=== PATIENT | male | born 1970 | race Caucasian/White ===

== ENCOUNTER 2016-12-02 17:53 | Emergency (ER) | payer OTHER ==
[~2016-12-02] VITALS: Ht 182.9 cm; Wt 114.6 kg
[~2016-12-02 17:53] MED LIST: ATV1 PO; CMD5 PO; MOMLX PO; MRPSR15 PO; NRN400 PO; PRT40 PO; RXC5 PO; SPRIN PO; TPRSR25 PO; VLM5 PO
[2016-12-02 17:55] VITALS: TEMP 36.5; Ht 182.9 cm; Wt 114.6 kg
[2016-12-02 20:07] LABS: BASO % 0.3 %; BASO ABS # 0.02 K/uL (0-0.2); COMPLETE YES; EOS % 1.1 %; HEMATOCRIT 37.6 % (42-52); IG% 0.2 %; LYMPH % 33.7 %; LYMPH ABS # 2.11 K/uL (1.2-3.4); MEAN CELL VOLUME 81.2 fL (80-100); MEAN CORPUSCULAR HEMOGLOBIN 29.2 pg (25-34); MEAN CORPUSCULAR HGB CONC 35.9 g/dl (32-36); MEAN PLATELET VOLUME 10.1 fL (7.4-10.4); NEUT % 56.7 %; PLATELET COUNT 257 K/uL (130-400); RED BLOOD COUNT 4.63 M/uL (4.7-6.1); WHITE BLOOD COUNT 6.26 K/uL (4.8-10.8)
[2016-12-02] MEDS ORDERED: OPTIRAY 320 IV PRN (20:15)
[2016-12-02 20:17] LABS: URINE APPEARANCE CLEAR (CLEAR); URINE BILIRUBIN NEG (NEG); URINE COLOR YELLOW; URINE NITRITE NEG (NEG); URINE PH 6.5 (4.5-7.5); URINE SPECIFIC GRAVITY 1.029 (1.000-1.030); UROBILINOGEN NEG (NEG)
[2016-12-02 20:19] LABS: MANUAL MICROSCOPIC REQUIRED? NO; REVIEW REQ? NO
[2016-12-02 20:21] LABS: PARTIAL THROMBOPLASTIN RATIO 0.8; PROTHROMBIN TIME (PATIENT) 10.4 SECONDS (9.0-12.0)
[2016-12-02 20:21] LABS: ARTERIAL BLD GAS O2 SATURATION 97.2 % (90-95); ARTERIAL BLOOD GAS BASE EXCESS 3.5 mEq/L (-9-1.8); ARTERIAL BLOOD GAS HCO3 28 mmol/L (19-24); ARTERIAL BLOOD GAS PO2 89 mm/Hg (80-95); ARTERIAL BLOOD GAS pH 7.46 (7.35-7.45)
[2016-12-02] MEDS ORDERED: RANI300T2 PO (20:25)
[2016-12-02] MEDS ORDERED: OMEP40CA41 PO (20:25)
--- NOTE | 2016-12-02 20:28 | DIAGNOSTIC IMAGING REPORT ---
CHEST ONE VIEW PORTABLE HISTORY: EVALUATE WEAKNESS COMPARISON: Chest 04/26/2016. FINDINGS: No pneumothorax. No pleural effusions. Poststernotomy changes. The heart is normal in size. Low lung volumes. The lungs are clear. No evidence for pulmonary edema. IMPRESSION: No significant change compared to the prior study. No acute process. Electronically signed by: Petey Lowe M.D. 12/02/2016 8:27 PM Dictated Date/Time: 12/02/2016 8:25 PM
[2016-12-02] MEDS ORDERED: MOME200A INH (20:38)
[2016-12-02] MEDS ORDERED: ASMIN/60 INH (20:38)
[2016-12-02] MEDS ORDERED: ALBU18002 INH (20:38)
[2016-12-02 20:40] LABS: ALT/SGPT 43 U/L (12-78); BLOOD UREA NITROGEN 16 mg/dl (7-18); BUN/CREATININE RATIO 18.4 (10-20); CALCIUM 9.1 mg/dl (8.5-10.1); CARBON DIOXIDE 28 mmol/L (21-32); CHLORIDE 102 mmol/L (98-107); CREATININE 0.88 mg/dl (0.60-1.40); GLUCOSE 119 mg/dl (70-99); MAGNESIUM 2.1 mg/dl (1.8-2.4); POTASSIUM 3.4 mmol/L (3.5-5.1); SODIUM 140 mmol/L (136-145)
[2016-12-02 20:47] LABS: ALLEN TEST POS (POS); O2 ADMINISTRATION ROOM AIR
[2016-12-02 20:53] LABS: ALKALINE PHOSPHATASE 82 U/L (45-117); AST/SGOT 13 U/L (15-37)
[2016-12-02] MEDS ORDERED: MONT1TAB3 PO (20:58)
[2016-12-02] MEDS ORDERED: NRN600 PO (20:58)
[2016-12-02] MEDS ORDERED: PRED-301 PO (20:58)
[2016-12-02] MEDS ORDERED: CETI10TA84 PO (20:58)
[2016-12-02] MEDS ORDERED: HYDROmorphone INJ 0.5 MG/0.5 ML SYR IV STA (21:02)
--- NOTE | 2016-12-02 21:22 | DIAGNOSTIC IMAGING REPORT ---
BILATERAL LOWER EXTREMITY VENOUS DOPPLER CLINICAL HISTORY: Respiratory difficulty. COMPARISON STUDY: Left lower extremity venous Doppler May 04, 2016. TECHNIQUE: Sonography of the deep venous system of the bilateral lower extremities was performed. Compression and augmentation were evaluated. FINDINGS: The bilateral common femoral, superficial femoral and popliteal veins were compressible. Augmentation was normal. Flow was shown within the deep calf vessels. IMPRESSION: No evidence of deep venous thrombus within the bilateral lower extremities. Electronically signed by: Alfred Cain M.D. 12/02/2016 9:21 PM Dictated Date/Time: 12/02/2016 9:19 PM
--- NOTE | 2016-12-02 21:36 | DIAGNOSTIC IMAGING REPORT ---
CT ANGIOGRAPHY OF THE CHEST, PULMONARY EMBOLUS PROTOCOL CLINICAL HISTORY: Chest pain. Respiratory difficulty. COMPARISON STUDY: Chest CT May 04, 2016. TECHNIQUE: Following IV administration of 112 mL of Optiray-320, helical axial images of the chest were obtained utilizing the pulmonary embolus protocol. Maximal intensity projections and sagittal and coronal reformats were viewed on an independent 3D workstation. IV contrast was administered without complication. CT DOSE: 598.10 mGy.cm FINDINGS: No pulmonary emboli are identified although opacification of the pulmonary arteries within the upper lobes is suboptimal. The pulmonary emboli shown on CT of May 04, 2016 have resolved. There is no evidence for thoracic aortic dissection. The size of the heart is normal. There are findings consistent with median sternotomy. Central airways are patent. No consolidation is identified. Linear right lung opacities favor scarring. There is no pneumothorax or pleural effusion. Bony thorax is unremarkable as is the upper abdomen. IMPRESSION: 1. No pulmonary emboli identified although the segmental and subsegmental pulmonary arteries within the upper lobes are suboptimally assessed on this exam. 2. No acute intrathoracic findings. Electronically signed by: Alfred Cain M.D. 12/02/2016 9:35 PM Dictated Date/Time: 12/02/2016 9:28 PM
[2016-12-02 23:14] VITALS: O2SAT 99
[2016-12-02] MEDS ORDERED: POTASSIUM CHLORIDE 10 MEQ TABCR PO SCH (23:16)
[2016-12-03] MEDS ORDERED: LACTATED RINGER'S 1000ML 1,000 ML IV SCH (00:12)
[2016-12-03] MEDS ORDERED: TRAMADOL HCL 50 MG HOME PACK PO ONE (00:15)
[2016-12-03 01:34] VITALS: BP 157/98; PULSE 72; O2SAT 98
--- NOTE | 2016-12-03 01:35 | EMERGENCY ROOM VISIT NOTE ---
History Report prepared by Shayne: Juanjose Green Under the Supervision of: Dr. Fred Camara M.D. First contact with patient: 19:22 Chief Complaint: RESPIRATORY PROBLEMS Stated Complaint: BREATHING MUSCLE PROBLEMS History of Present Illness The patient is a 46 year old male who presents to the Emergency Room with complaints of constant worsening shortness of breath. 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 Per the , the patient additionally has been agitated and not acting like himself recently. 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 The states that he is acting similarly to how he was acting then. The patient states that he was on Coumadin, however he has recently stopped taking it due to his doctor's orders on October 21. The patient additionally states that he had spinal surgery, so he has chronic back pain. He additionally states that he has neck pain, and he has calf pain, however he states that this could be chronic. Pt denies LOC, headache, fevers, chills, diaphoresis, visual changes, chest pain, nausea, vomiting, abdominal pain, back pain, melena, hematochezia, urinary symptoms, numbness, weakness, lymphadenopathy, rash, or other complaints. Source of History: patient Onset: a while ago Position: other (global) Quality: other (shortness of breath) Timing: constant, worsening Associated Symptoms: + back pain, + neck pain Review of Systems See HPI for pertinent positives and negatives. A total of ten systems were reviewed and were otherwise negative. Past Medical & Surgical Medical Problems: (1) Arthritis of lower back (2) Benign hypertension (3) Lumbar disc herniation with radiculopathy (4) Pulmonary embolism Family History Diabetes mellitus Heart disease Hypertension Social History Smoking Status: Former Smoker Alcohol Use: none Drug Use: none Marital Status: Housing Status: lives with family Occupation Status: unemployed Current/Historical Medications Scheduled Cetirizine (Zyrtec), 10 MG PO AFTERNOON Gabapentin (Gabapentin), 600 MG PO TID Metoprolol Succinate (Metoprolol Succinate ER), 25 MG PO QAM Mometasone Furoate (Asmanex Twisthaler 60 Met), 3 PUFFS INH HS Mometasone Furoate-Formoterol (Dulera 200/5 Mcg), 2 PUFFS INH BID Montelukast Sodium (Singulair), 10 MG PO HS Omeprazole (Prilosec), 40 MG PO QAM Prednisone (Prednisone), 0 PO UD Ranitidine (Zantac), 300 MG PO HS Tiotropium Foristell (Spiriva Handihaler), 1 PUFF PO DAILY Scheduled PRN Albuterol Sulfate (Proair Respiclick), 2 PUFFS INH Q4 PRN for SOB/Wheezing Allergies Coded Allergies: Cat Dander (Verified Allergy, Intermediate, SNEEZING, ITCHY EYES, RUNNY NOSE, 12/02/16) Lorazepam (Verified Adverse Reaction, Severe, DELIRIUM, 12/02/16) Pt states he" lost his mind", very confused, hallucinated, thought was in [place]. Physical Exam Vital Signs Date Time Temp Pulse Resp B/P Pulse Ox O2 Delivery O2 Flow Rate FiO2 12/02/16 23:14 99 Nasal Cannula 2.0 12/02/16 23:13 70 18 152/115 86 Room Air 12/02/16 22:16 73 18 139/102 95 Room Air 12/02/16 20:31 76 12/02/16 19:50 97 Room Air 12/02/16 17:58 98 Room Air 12/02/16 17:55 36.5 81 20 170/101 98 Room Air Physical Exam GENERAL: Awake, alert, tired-appearing, in no distress HENT: Normocephalic, atraumatic. Oropharynx unremarkable. EYES: Normal conjunctiva. Sclera non-icteric. NECK: Supple. No nuchal rigidity. FROM. No JVD. RESPIRATORY: Clear to auscultation. CARDIAC: Regular rate, normal rhythm. Extremities warm and well perfused. Pulses equal. ABDOMEN: Soft, non-distended. No tenderness to palpation. No rebound or guarding. No masses. RECTAL: Deferred. MUSCULOSKELETAL: Chest examination reveals no tenderness. The back is symmetrical on inspection without obvious abnormality. There is no CVA tenderness to palpation. No joint edema. LOWER EXTREMITIES: Mild left calf tenderness. Subjective numbness in the left foot. Calves are equal size bilaterally. No edema. No discoloration. NEURO: Normal sensorium. No sensory or motor deficits noted. SKIN: No rash or jaundice noted. Medical Decision & Procedures ER Provider Diagnostic Interpretation: X ray results as stated below per my interpretation and radiologist interpretation. Other radiology results as stated below per my review and radiologist interpretation CHEST ONE VIEW PORTABLE HISTORY: EVALUATE WEAKNESS COMPARISON: Chest 04/26/2016. FINDINGS: No pneumothorax. No pleural effusions. Poststernotomy changes. The heart is normal in size. Low lung volumes. The lungs are clear. No evidence for pulmonary edema. IMPRESSION: No significant change compared to the prior study. No acute process. Electronically signed by: Petey Lowe M.D. 12/02/2016 8:27 PM Dictated Date/Time: 12/02/2016 8:25 PM BILATERAL LOWER EXTREMITY VENOUS DOPPLER CLINICAL HISTORY: Respiratory difficulty. COMPARISON STUDY: Left lower extremity venous Doppler May 04, 2016. TECHNIQUE: Sonography of the deep venous system of the bilateral lower extremities was performed. Compression and augmentation were evaluated. FINDINGS: The bilateral common femoral, superficial femoral and popliteal veins were compressible. Augmentation was normal. Flow was shown within the deep calf vessels. IMPRESSION: No evidence of deep venous thrombus within the bilateral lower extremities. Electronically signed by: Alfred Cain M.D. 12/02/2016 9:21 PM Dictated Date/Time: 12/02/2016 9:[address] ANGIOGRAPHY OF THE CHEST, PULMONARY EMBOLUS PROTOCOL CLINICAL HISTORY: Chest pain. Respiratory difficulty. COMPARISON STUDY: Chest CT May 04, 2016. TECHNIQUE: Following IV administration of 112 mL of Optiray-320, helical axial images of the chest were obtained utilizing the pulmonary embolus protocol. Maximal intensity projections and sagittal and coronal reformats were viewed on an independent 3D workstation. IV contrast was administered without complication. CT DOSE: 598.10 mGy.cm FINDINGS: No pulmonary emboli are identified although opacification of the pulmonary arteries within the upper lobes is suboptimal. The pulmonary emboli shown on CT of May 04, 2016 have resolved. There is no evidence for thoracic aortic dissection. The size of the heart is normal. There are findings consistent with median sternotomy. Central airways are patent. No consolidation is identified. Linear right lung opacities favor scarring. There is no pneumothorax or pleural effusion. Bony thorax is unremarkable as is the upper abdomen. IMPRESSION: 1. No pulmonary emboli identified although the segmental and subsegmental pulmonary arteries within the upper lobes are suboptimally assessed on this exam. 2. No acute intrathoracic findings. Electronically signed by: Alfred Cain M.D. 12/02/2016 9:35 PM Dictated Date/Time: 12/02/2016 9:28 PM Laboratory Results 12/02/16 19:50 Red Blood Count 4.63, Mean Corpuscular Volume 81.2, Mean Corpuscular Hemoglobin 29.2, Mean Corpuscular Hemoglobin Concent 35.9, Mean Platelet Volume 10.1, Neutrophils (%) (Auto) 56.7, Lymphocytes (%) (Auto) 33.7, Monocytes (%) (Auto) 8.0, Eosinophils (%) (Auto) 1.1, Basophils (%) (Auto) 0.3, Neutrophils # (Auto) 3.55, Lymphocytes # (Auto) 2.11, Monocytes # (Auto) 0.50, Eosinophils # (Auto) 0.07, Basophils # (Auto) 0.02 12/02/16 19:50 Test 12/02/16 19:45 12/02/16 19:50 12/02/16 20:12 12/02/16 23:32 Urine Color YELLOW Urine Appearance CLEAR (CLEAR) Urine pH 6.5 (4.5-7.5) Urine Specific [place] 1.029 (1.000-1.030) Urine Protein NEG (NEG) Urine Glucose (UA) NEG (NEG) Urine Ketones NEG (NEG) Urine Occult Blood NEG (NEG) Urine Nitrite NEG (NEG) Urine Bilirubin NEG (NEG) Urine Urobilinogen NEG (NEG) Urine Leukocyte Esterase NEG (NEG) White Blood Count 6.26 K/uL (4.8-10.8) Red Blood Count 4.63 M/uL (4.7-6.1) Hemoglobin 13.5 g/dL (14.0-18.0) Hematocrit 37.6 % (42-52) Mean Corpuscular Volume 81.2 fL (80-100) Mean Corpuscular Hemoglobin 29.2 pg (25-34) Mean Corpuscular Hemoglobin Concent 35.9 g/dl (32-36) Platelet Count 257 K/uL (130-400) Mean Platelet Volume 10.1 fL (7.4-10.4) Neutrophils (%) (Auto) 56.7 % Lymphocytes (%) (Auto) 33.7 % Monocytes (%) (Auto) 8.0 % Eosinophils (%) (Auto) 1.1 % Basophils (%) (Auto) 0.3 % Neutrophils # (Auto) 3.55 K/uL (1.4-6.5) Lymphocytes # (Auto) 2.11 K/uL (1.2-3.4) Monocytes # (Auto) 0.50 K/uL (0.11-0.59) Eosinophils # (Auto) 0.07 K/uL (0-0.5) Basophils # (Auto) 0.02 K/uL (0-0.2) RDW Standard Deviation 39.5 fL (36.4-46.3) RDW Coefficient of Variation 13.4 % (11.5-14.5) Immature Granulocyte % (Auto) 0.2 % Immature Granulocyte # (Auto) 0.01 K/uL (0.00-0.02) Prothrombin Time 10.4 SECONDS (9.0-12.0) Prothromb Time International Ratio 1.0 (0.9-1.1) Activated Partial Thromboplast Time 22.0 SECONDS (21.0-31.0) Partial Thromboplastin Ratio 0.8 Anion Gap 10.0 mmol/L (3-11) Est Creatinine Clear Calc Drug Dose 138.6 ml/min Estimated GFR () 120.2 Estimated GFR (Non- 103.7 BUN/Creatinine Ratio 18.4 (10-20) Calcium Level 9.1 mg/dl (8.5-10.1) Magnesium Level 2.1 mg/dl (1.8-2.4) Total Bilirubin 0.3 mg/dl (0.2-1) Direct Bilirubin < 0.1 mg/dl (0-0.2) Aspartate Amino Transf (AST/SGOT) 13 U/L (15-37) Alanine Aminotransferase (ALT/SGPT) 43 U/L (12-78) Alkaline Phosphatase 82 U/L (45-117) Total Creatine Kinase 37 U/L (39-308) Creatine Kinase MB < 0.5 ng/ml (0.5-3.6) Creatine Kinase MB Ratio (0-3.0) Troponin I < 0.015 ng/ml (0-0.045) Total Protein 7.7 gm/dl (6.4-8.2) Albumin 3.9 gm/dl (3.4-5.0) Lipase 76 U/L (73-393) Thyroid Stimulating Hormone (TSH) 0.640 uIu/ml (0.300-4.500) Arterial Blood pH 7.46 (7.35-7.45) Arterial Blood Partial Pressure CO2 40 mmHg (35-46) Arterial Blood Partial Pressure O2 89 mm/Hg (80-95) Arterial Blood HCO3 28 mmol/L (19-24) Arterial Blood Oxygen Saturation 97.2 % (90-95) Arterial Blood Base Excess 3.5 mEq/L (-9-1.8) Arterial Blood Gas Delivery ROOM AIR Isreal Test POS (POS) Laboratory results reviewed by me Medications Administered Medications (Trade) Dose Ordered Sig/Aime Route Start Time Stop Time Status Last Admin Dose Admin Hydromorphone HCl (Dilaudid Inj) 0.5 mg NOW STAT IV 12/02/16 21:02 12/02/16 21:03 DC 12/02/16 21:48 0.5 MG Potassium Chloride 40 meq 40 meq TODAY@2316 PO 12/02/16 23:16 12/03/16 01:00 DC 12/03/16 00:14 40 MEQ Lactated Ringer's (Lr 1000ml) 1,000 ml @ 500 mls/hr Q2H IV 12/03/16 00:12 12/03/16 01:11 DC 12/03/16 00:12 500 MLS/HR ECG Indication: SOB/dyspnea Rate (beats per minute): 79 Rhythm: normal sinus Findings: nonspecific-ST abn, no ectopy ED Course 1953: The patient was evaluated in room B6. A complete history and physical exam was performed. 2101: Dilaudid Inj 0.5mg IV 2299: I reevaluated the patient, and his told me that he has been acting unusual, and his breathing has been off. The patient is concerned because he is acting similarly to how he was acting when he had a PE. 2308: I discussed the patient's case with Dr. Alvarado. He is going to evaluate the patient for further treatment. Medical Decision Triage Nursing notes reviewed. The patient's presentation and history were concerning for respiratory issues and drowsiness. Etiologies such as PE, DVT, pneumonia, metabolic, infection, hypo/hyperglycemia , electrolyte abnormalities, cardiac sources, intracerebral event, toxicologic, neurologic, as well as others were entertained. The patient was evaluated. He was answering questions appropriately. He denied any headache. He denies any trauma. He notes a history of diaphragmatic paralysis. The patient had blood work obtained. He had an unremarkable CBC, chemistry panel, cardiac markers, and ABG. Ammonia level was negative. The patient's CT of the chest was unremarkable. The patient had a normal lower extremity ultrasound. On reassessment the patient's noted that he was having some increased drowsiness. She was concerned. The patient he may have taken a few extra doses of his tramadol pain medication as he had a flare up of his back pain. The patient has a follow-up with orthopedic spine tomorrow. Physical patient's drowsiness and discussed observation in the hospital. The patient and were in agreement. [facility] He evaluated the patient in the emergency department. After long discussion and additional time in the emergency department the patient improved. His drowsiness resolved. The patient and felt comfortable with going home. Dr. Randolph discharge the patient although he did ask to provide the patient with a home pack of tramadol as the patient was out until he can get into orthopedic spine tomorrow. This was ordered. The patient worsens in any way he will be back. He will follow- up with orthopedic spine murmur. He also follow-up with his outpatient physician as well. The chart was completed utilizing [employer] Speech voice recognition software. Grammatical errors, random word insertions, pronoun errors, and incomplete sentences are an occasional consequence of this system due to software limitations, ambient noise, and hardware issues. Any formal questions or concerns about the content, text, or information contained within the body of this dictation should be directly addressed to the physician for clarification. Consults Time Called: [phone] Consulting Physician: Dr. Alvarado Returned Call: [phone] I discussed the patient's case with Dr. Alvarado. He is going to evaluate the patient for further treatment Impression Primary Impression: Shortness of breath Additional Impression: Altered mental status Scribe Attestation The scribe's documentation has been prepared under my direction and personally reviewed by me in its entirety. I confirm that the note above accurately reflects all work, treatment, procedures, and medical decision making performed by me. Departure Information Dispostion Being Evaluated By Hospitalist Referrals No Doctor, Assigned (PCP) Problem Qualifiers
[2016-12-03 07:12] LABS: BENZODIAZEPINE, URINE NEG (NEG); COCAINE,URINE NEG (NEG); PHENCYCLIDINE, URINE NEG (NEG)
--- NOTE | 2016-12-03 08:04 | INTERNAL MEDICINE CONSULTATION ---
DATE OF CONSULTATION: 12/02/2016 PATIENT'S PRIMARY CARE DOCTOR: Dr. Chowdhury from [facility]. The patient seen at request of Dr. Camara for evaluation of shortness breath, altered mental status. Hx obtained from px and records. HISTORY OF PRESENT ILLNESS: Medical history is significant for COPD, asthma, past tobacco abuse, MACARENA not on CPAP, HTN, chronic back pain sp surgery, history of atrial flutter status post ablation, iatrogenic diaphragm paralysis, history of PE/DVT, status post anticoagulation. Recent confinement last April 2016 for postop PE/DVT. Patient subsequently completed Coumadin tx. The last few days patient noted by to be agitated, confused, occasionally wheezing. some sob, usual cough sx as per px. Px not sleeping well. usual back pain. px denies intake of meds other than usual home rx. Patient was seen at assisted living care manager's office yesterday. Impression was asthma exacerbation. Outpatient sleep study recommended. ER evaluation recommended. At the Emergency Room, the patient noted to be more alert, oriented by , Currently comfortable. MEDICAL HISTORY: As above. Terminated medication usage agreement as per outpatient PCP records. PCP found multiple prescribers upon PDMP query highly suspicious for abuse and/or diversion. Treatment options for opioid dependence discussed. Patient provided information on [facility] counseling. About 14 years ago diaphragm paralysis at [facility] ff inadvertent nerve injury ff ablation procedure for atrial flutter. SURGERIES: He has had back surgery, appendectomy. HOME MEDICATIONS: Include Proair, Zyrtec, gabapentin, Dulera, Singulair, Asmanex, Prilosec, prednisone, Zantac. ALLERGIES: CAT DANDER, LORAZEPAM. FAMILY HISTORY: Family history of heart disease, migraine. PERSONAL AND SOCIAL HISTORY: past tobacco abuse. Disabled. REVIEW OF SYSTEMS: As per HPI. all other ROS negative PHYSICAL EXAMINATION: VITAL SIGNS: Blood pressure was noted to be 120/80, pulse rate 90, RR 18, temperature 36.5, sats 86 RA, later 98 on room air. GENERAL: Noted to be obese, comfortable, no respiratory distress. SKIN: Normal color. HEAD, EYES, EARS, NOSE, AND THROAT: pink palp conjunctivae, dry oral mucosa. NECK: Short neck. LUNGS: Decreased breath sounds. No wheeze. HEART: Regular rate and rhythm. ABDOMEN: Some distention, non tender. EXTREMITIES: No edema, no tenderness. BACK: low back tenderness (chronic) NE : no gross focality LABORATORY DATA: Hemoglobin is noted to be 13.9, white cell count 10 platelets 200. Sodium 140, potassium 3.4, chloride 102, CO2 28, glucose 119 ABG 7.46/40/89/97%RA UA clean. EKG NSR, TW flattening inf leads IMAGING: CTA no PE. ASSESSMENT: 1. Transient encephalopathy at home resolved multifactorial : uncontrolled chronic back pain, hx surgery. (hx terminated medication usage agreement as per outpx PCP records) Home meds disordered sleep (MACARENA not on CPAP) hypokalemia, mild clinical dehydration ? illicit drug use 2. COPD/asthma currently not in exacerbation. ABG WNL Prescribed outpatient steroid course by assisted living care manager's office RECOMMENDATIONS: check urine tox Replace potassium. IVF bolus No indication for inpatient observation/confinement for now. Patient currently at baseline mentation and pulmo status. Px and are amenable to discharge to home. Follow up with outpatient Pulmonology. Nebulizers as needed. Outpatient sleep study at some point. Follow-up appointment with back surgeon, Dr. Cerrato. PX may benefit from outpx Pain Management consultation. Patient instructed to return to Emergency Room for chest pain, shortness symptoms. Patient and expressed their interest in finding a new primary care doctor for px preferably from [facility] office. (possibly Dr. Borrego or Dr. Burdick) Will communicate this to patient's current PCP, Dr. Fleming. Thank you very much for this consultation. DAMIAN
[2016-12-06 14:20] LABS: COD UR NEGATIVE NG/ML (CUTOFF=50); HYDROCOD UR 2600 NG/ML (CUTOFF=50); HYDROMOR UR 530 NG/ML (CUTOFF=50); MORPHINE UR 944 NG/ML (CUTOFF=50); NORHYDROCODONE CONF UR 1780 NG/ML (CUTOFF=50); OXYMORPH UR NEGATIVE NG/ML (CUTOFF=50)
== END 2016-12-03 01:47 | disposition home or self-care (01) ==
LOC: C.EDB 17:55
DX: R06.02 Shortness of breath (principal); R41.82 Altered mental status, unspecified; I10 Essential (primary) hypertension; I48.91 Unspecified atrial fibrillation; M51.16 Intervertebral disc disorders with radiculopathy, lumbar region; Z86.711 Personal history of pulmonary embolism; Z86.718 Personal history of other venous thrombosis and embolism; Z87.891 Personal history of nicotine dependence; Z79.01 Long term (current) use of anticoagulants; Z79.899 Other long term (current) drug therapy; Z88.8 Allergy status to other drugs, medicaments and biological substances; Z91.09 Other allergy status, other than to drugs and biological substances; Z83.3 Family history of diabetes mellitus; Z82.49 Family history of ischemic heart disease and other diseases of the circulatory system